=== PATIENT | female | born 1950 | race Two or more races ===

== ENCOUNTER 2019-11-03 12:00 | Outpatient (CLI) | payer MEDICARE | END 2019-11-03 23:59 | disposition home or self-care (01) | LOC: WOU 12:00 | PROVIDERS: ATTEND Surgery | DX: N62 Hypertrophy of breast (principal); I10 Essential (primary) hypertension; R73.03 Prediabetes; L30.4 Erythema intertrigo | CPT/HCPCS: G0463 ==